=== PATIENT | male | born 1990 | race Caucasian/White ===

== ENCOUNTER 2025-05-06 16:54 | Emergency (ER) | payer BC ==
[2025-05-06] MEDS: Diphtheria,Pertussis(Acell),Tetanus Vaccine 0.5 ML Syringe IM ONE (18:21)
== END 2025-05-06 18:30 | disposition home or self-care (01) ==
LOC: JD.ED 16:54
DX: S91.011A Laceration without foreign body, right ankle, initial encounter (principal); Z91.013 Allergy to seafood; Z79.899 Other long term (current) drug therapy; X58.XXXA Exposure to other specified factors, initial encounter
CPT/HCPCS: 12001; 90471; 90715; 99282-25; 99283